=== PATIENT | male | born 1995 | race Caucasian/White ===

== ENCOUNTER 2017-06-20 19:14 | Emergency (ER) | payer BC ==
[2017-06-20 19:15] VITALS: BMI 24.3
[2017-06-20] MEDS ORDERED: Sodium Chloride 0.9% 1,000 ML IV ONE (21:04)
--- NOTE | 2017-06-20 21:12 | C.PDOC ---
History Of Present Illness 22yo male presents to ED with complaints of constant, dull, epigastric pain for the past 2 days more on the left side of his abdomen. Patient states pain is worse with eating food and reports associated nausea. States he has good appetite but has not been able to eat due to the resulting abdominal pain. Patient had 3x episodes of vomiting today as well. Of note, patient reports a productive cough with yellow phlegm but denies any episodes of post-tussive vomiting. He does report back pain due to the cough. Patient also states he has recently completed a course of Tamiflu with the last dose 5 days ago. He denies any fever, chills, urinary symptoms, chest pain, shortness of breath, palpitations, leg pains. Of note, patient states he has had episodes of epistaxis in the morning for the past couple days which is not normal. Time Seen by Provider: 06/20/17 20:37 Chief Complaint (Nursing): Abdominal Pain History Per: Patient History/Exam Limitations: no limitations Onset/Duration Of Symptoms: Days Current Symptoms Are (Timing): Still Present Pain Scale Rating Of: 5 Location Of Pain/Discomfort: LUQ, LLQ Quality Of Discomfort: "Pain" Associated Symptoms: Nausea, Vomiting, Back Pain Past Medical History Reviewed: Historical Data, Nursing Documentation, Vital Signs Vital Signs: Last Vital Signs Temp 98.6 F 06/20/17 20:15 Pulse 80 06/20/17 20:15 Resp 20 06/20/17 20:15 BP 121/77 06/20/17 20:15 Pulse Ox 99 06/20/17 22:21 - Medical History PMH: No Chronic Diseases Surgical History: No Surg Hx Family History: States: Unknown Family Hx - Social History Hx Tobacco Use: No Hx Alcohol Use: Yes Hx Substance Use: No - Immunization History Hx Tetanus Toxoid Vaccination: No Hx Influenza Vaccination: No Hx Pneumococcal Vaccination: No Review Of Systems Except As Marked, All Systems Reviewed And Found Negative. Constitutional: Negative for: Fever, Chills Cardiovascular: Negative for: Chest Pain, Palpitations Respiratory: Positive for: Cough, Sputum (yellow). Negative for: Shortness of Breath Gastrointestinal: Positive for: Nausea, Vomiting, Abdominal Pain. Negative for : Diarrhea, Constipation Musculoskeletal: Positive for: Back Pain Physical Exam - Physical Exam Appears: Non-toxic, No Acute Distress Skin: Normal Color, Warm, Dry Head: Atraumatic, Normacephalic Eye(s): bilateral: Normal Inspection Neck: Normal ROM, Supple Chest: Symmetrical Cardiovascular: Rhythm Regular Respiratory: Normal Breath Sounds Gastrointestinal/Abdominal: Bowel Sounds (good), Soft, Tenderness (left upper and lower quadrant tenderness; epigastric tenderness) Back: Normal Inspection, No Vertebral Tenderness, No Paraspinal Tenderness Extremity: Normal ROM, No Pedal Edema Neurological/Psych: Oriented x3 ED Course And Treatment - Laboratory Results Result Diagrams: 06/20/17 21:23 06/20/17 21:23 O2 Sat by Pulse Oximetry: 99 (RA) Pulse Ox Interpretation: Normal Medical Decision Making Medical Decision Making: Impression: Abdominal pain with associated vomiting Plan: -- Labs -- IV Fluids -- Pepcid 20mg IVP -- Toradol 30mg IVP -- Zofran 4mg IVP reevaluation at 2220 - patient feels better. No further symptoms. Will discharge home to follow up with dr. Terell Brady tomorrow. Disposition Discussed With DrBriana: Edler Brady Counseled Patient/Family Regarding: Studies Performed, Diagnosis, Need For Followup, Rx Given - Disposition Referrals: Elder Brady MD [Staff Provider] - Disposition: HOME/ ROUTINE Disposition Time: 22:23 Condition: IMPROVED Additional Instructions: follow up with your doctor in 2 days call to make an appointment take medications as needed return to ER if symptoms worsens or progress Prescriptions: Famotidine [Pepcid] 20 mg PO BID #20 tab Naproxen [Naprosyn] 500 mg PO BID PRN #16 tab PRN Reason: Pain, Moderate (4-7) Ondansetron ODT [Zofran ODT] 4 mg PO TID PRN #12 odt PRN Reason: Nausea/Vomiting Instructions: Abdominal Pain (ED) Forms: [facility] (Uzbek), General Discharge Instructions - Clinical Impression Clinical Impression: Nausea, Vomiting, Abdominal discomfort - Scribe Statement The provider has reviewed the documentation as recorded by the Scribe (Amisha Gonzalez) Provider Attestation: All medical record entries made by the Scribe were at my direction and personally dictated by me. I have reviewed the chart and agree that the record accurately reflects my personal performance of the history, physical exam, medical decision making, and the department course for this patient. I have also personally directed, reviewed, and agree with the discharge instructions and disposition.
[2017-06-20] MEDS ORDERED: Sodium Chloride 0.9% 1,000 ML ONE (21:28)
[2017-06-20 21:29] LABS: BASO % 0.2 % (0.0-2.0); EOS # 0.1 K/uL (0.0-0.7); EOS % 0.7 % (0.0-4.0); HEMOGLOBIN 14.5 g/dL (12.0-18.0); LYMPH # 2.3 K/uL (1.0-4.3); LYMPH % 32.3 % (20.0-40.0); MEAN CORPUSCULAR HEMOGLOBIN 31.3 pg (27.0-31.0); MEAN CORPUSCULAR HGB CONC 35.4 g/dL (33.0-37.0); MEAN PLATELET VOLUME 7.5 fL (7.2-11.7); MONO # 0.5 K/uL (0.0-0.8); MONO % 7.2 % (0.0-10.0); NEUT # 4.2 K/uL (1.8-7.0); NEUT % 59.6 % (50.0-75.0); NRBC % 0.1 % (0.0-2.0); RBC 4.64 Mil/uL (4.40-5.90); RED CELL DISTRIBUTION WIDTH 12.2 % (11.5-14.5)
[2017-06-20 21:33] LABS: MEAN CELL VOLUME 88.4 fL (80.0-94.0)
[2017-06-20 21:43] LABS: ALB/GLOB RATIO 1.2 (1.0-2.1); ALBUMIN 4.5 g/dL (3.5-5.0); ALT/SGPT 26 U/L (21-72); AST/SGOT 24 U/L (17-59); BLOOD UREA NITROGEN 9 mg/dL (9-20); CALCIUM 9.4 mg/dl (8.6-10.4); GFR AFRICAN-AMERICAN > 60; GFR NON-AFRICAN AMERICAN > 60; LIPASE 48 U/L (23-300)
[2017-06-20 21:45] LABS: URINE BILIRUBIN NEGATIVE (NEGATIVE); URINE BLOOD NEGATIVE (NEGATIVE); URINE CLARITY Clear (Clear); URINE COLOR Yellow (YELLOW); URINE GLUCOSE (UA) NORMAL (Normal); URINE LEUKOCYTE ESTERASE NEG Leu/uL (Negative); URINE NITRATE NEGATIVE (NEGATIVE); URINE PROTEIN NEGATIVE (NEGATIVE); URINE UROBILINOGEN NORMAL mg/dL (0.2-1.0)
[2017-06-20 22:27] VITALS: BP 120/68; PULSE 66; RESP 19; TEMP 97.8; O2SAT 100
--- NOTE | 2017-06-21 10:30 | RAD ---
PROCEDURE: Radiographs of the chest and abdomen (obstructive series) HISTORY: abd pain COMPARISON: None available. TECHNIQUE: AP radiograph of the chest, with upright and supine radiographs of the abdomen. FINDINGS: CHEST: Heart size appears within normal limits. No focal consolidation, significant pleural effusion, or definite pneumothorax identified.Please note that chest x-ray has limited sensitivity for the detection of pulmonary masses. ABDOMEN AND PELVIS: Nonobstructive bowel gas pattern. No definite free air. Mild to moderate constipation. No acute osseous abnormality is detected. IMPRESSION: Mild to moderate constipation.
== END 2017-06-20 22:54 | disposition home or self-care (01) ==
LOC: C.ER 19:14
DX: R10.13 Epigastric pain (principal); R11.2 Nausea with vomiting, unspecified
CPT/HCPCS: 74022; 80053; 81001; 83690; 85025; 96361; 96374; 96375; 99284; J1885; J2405; J7040